=== PATIENT | male | born 1995 | race Caucasian/White ===

== ENCOUNTER 2017-07-05 04:49 | Emergency (ER) | payer OTHER ==
[~2017-07-05] VITALS: Ht 170.2 cm; Wt 75.0 kg
[2017-07-05] MEDS ORDERED: TYLE500T78 PO (04:57)
[2017-07-05] MEDS ORDERED: CYCL10TA PO (06:04)
[2017-07-05] MEDS ORDERED: NAPR500T PO (06:04)
[2017-07-05] MEDS ORDERED: TRAM50TA2 PO (06:04)
[2017-07-05] MEDS ORDERED: CYCLOBENZAPRINE 10 MG TAB PO ONE (06:15)
[2017-07-05] MEDS ORDERED: traMADol 50 MG TAB (BULK 4 TAB ED) PO ONE (06:15)
[2017-07-05] MEDS ORDERED: NAPROXEN 250 MG TAB PO ONE (06:15)
[2017-07-05 06:19] VITALS: BP 132/79
== END 2017-07-05 06:20 | disposition home or self-care (01) ==
LOC: M ED 04:49
DX: M54.5 Low back pain (principal)

== ENCOUNTER 2018-07-10 12:39 | Emergency (ER) | payer SELFPAY, OTHER, MEDICAID ==
[2018-07-10] MEDS: METHOCARBAMOL 500 MG TAB PO (14:03)
[2018-07-10] MEDS: IBUPROFEN 800 MG TAB PO (14:03)
== END 2018-07-10 14:06 | disposition home or self-care (01) ==
LOC: M ED 12:39
DX: M62.830 Muscle spasm of back (principal); S29.002A Unspecified injury of muscle and tendon of back wall of thorax, initial encounter; X58.XXXA Exposure to other specified factors, initial encounter; Y92.89 Other specified places as the place of occurrence of the external cause; Z88.5 Allergy status to narcotic agent; Z88.8 Allergy status to other drugs, medicaments and biological substances
CPT/HCPCS: 99282

== ENCOUNTER 2018-07-11 04:02 | Emergency (ER) | payer SELFPAY, OTHER ==
[2018-07-11 04:42] LABS: APPEARANCE, URINE CLEAR (CLEAR); BACTERIA, URINE AUTO NEGATIVE (NEGATIVE); BILIRUBIN, URINE AUTO NEGATIVE (NEGATIVE); BLOOD, URINE BLOOD NEGATIVE (NEGATIVE); COLOR, URINE STRAW (YELLOW); GLUCOSE, URINE (UA) AUTO NEGATIVE (NEGATIVE); KETONE, URINE AUTO NEGATIVE (NEGATIVE); LEUKOCYTE ESTERASE, URINE AUTO NEGATIVE (NEGATIVE); NITRITE, URINE AUTO NEGATIVE (NEGATIVE); PROTEIN, URINE AUTO NEGATIVE (NEGATIVE); RBC, URINE AUTO 1 /HPF (0-3); SPECIFIC GRAVITY URINE AUTO 1.014 (1.002-1.035); SQUAMOUS EPITHELIAL CELL UR AU 0 /HPF (0-6); UROBILINOGEN, URINE AUTO 0.2 mg/dL (0.0-2.0); WBC, URINE AUTO 0 /HPF (0-3)
[2018-07-11] MEDS: NORCO 5/325MG TABLET (BULK FOR ED) PO (05:18)
== END 2018-07-11 05:24 | disposition home or self-care (01) ==
LOC: M ED 04:02
DX: M54.5 Low back pain (principal); M62.830 Muscle spasm of back; Z88.5 Allergy status to narcotic agent; Z88.6 Allergy status to analgesic agent
CPT/HCPCS: 81001

== ENCOUNTER 2019-07-20 05:21 | Emergency (ER) | payer OTHER, SELFPAY ==
[~2019-07-20] VITALS: Ht 170.2 cm; Wt 75.0 kg
[2019-07-20 05:21] VITALS: BP 159/86
[~2019-07-20 05:21] MED LIST: CYCL10TA PO; HYDR-3715 PO; IBUP80TA PO; NAPR-837 PO; ROBA500T PO; TRAM50TA2 PO; TYLE500T78 PO
[2019-07-20] MEDS ORDERED: TETRACAINE 0.5% OPHTH SOLN 4ML OS ONE (05:45)
[2019-07-20] MEDS ORDERED: FLUORESCEIN OPHTH 1 MG STRIP OS ONE (05:45)
[2019-07-20] MEDS ORDERED: ERYT1OIN26 OS (06:03)
[2019-07-20] MEDS ORDERED: ERYTHROMYCIN OPHTH OINT OS ONE (06:15)
== END 2019-07-20 06:19 | disposition home or self-care (01) ==
LOC: M ED 05:21
DX: S05.02XA Injury of conjunctiva and corneal abrasion without foreign body, left eye, initial encounter (principal); W50.0XXA Accidental hit or strike by another person, initial encounter; Y92.89 Other specified places as the place of occurrence of the external cause; Y93.89 Activity, other specified; Y99.8 Other external cause status; Z88.5 Allergy status to narcotic agent; Z88.6 Allergy status to analgesic agent

== ENCOUNTER 2020-09-24 13:34 | Emergency (ER) | payer OTHER ==
[~2020-09-24] VITALS: Ht 170.2 cm; Wt 77.5 kg
[~2020-09-24 13:34] MED LIST changes: +CYCL-707 PO; -CYCL10TA PO; +ERYT5OIN25 OS
[2020-09-24] MEDS ORDERED: IBUPROFEN 800 MG TAB PO ONE (14:15)
--- NOTE | 2020-09-24 14:48 | REP ---
INDICATION: acute severe low back pain COMPARISON: 09/08/2010 TECHNIQUE: AP, lateral, bilateral oblique, and coned-down views of the lumbar spine. FINDINGS: Alignment and lordosis from T11 through L5 is maintained and normal. There is chronic L5 spondylolysis with associated grade 1 spondylolisthesis at the L5-S1 level. The disc spaces are maintained. There is no acute fracture/compression injury. IMPRESSION: Findings suggest spondylolysis and grade 1 spondylolisthesis at the L5-S1 level. <Electronically signed by Jarad Bermudez > 09/24/20 [id number]
[2020-09-24] MEDS ORDERED: CYCLOBENZAPRINE 10MG TABLET PO ONE (15:15)
[2020-09-24] MEDS ORDERED: CYCL-707 PO (15:38)
[2020-09-24 15:41] VITALS: BP 148/88
--- NOTE | 2020-09-24 16:53 | ED PDOC ---
Post-Departure Follow-Up ls spine xray faxed to sne[facility] for fu Lauren Whalen MD Sep 24, 2020 16:53
[2020-09-24] MEDS ORDERED: KETO10TAB PO (20:55)
== END 2020-09-24 15:47 | disposition home or self-care (01) ==
LOC: M ED 13:34
DX: M62.830 Muscle spasm of back (principal); M43.06 Spondylolysis, lumbar region; Z88.8 Allergy status to other drugs, medicaments and biological substances; Z88.5 Allergy status to narcotic agent

== ENCOUNTER 2020-09-24 19:57 | Emergency (ER) | payer OTHER ==
[~2020-09-24] VITALS: Ht 170.2 cm; Wt 77.6 kg
[2020-09-24 19:58] VITALS: BP 124/82
[2020-09-24] MEDS ORDERED: KETO10TAB PO (20:55)
[2020-09-24] MEDS ORDERED: diazePAM 5 MG TAB PO ONE (21:00)
[2020-09-24] MEDS ORDERED: KETOROLAC 30 MG/ML 1ML VIAL IM ONE (21:00)
== END 2020-09-24 21:27 | disposition home or self-care (01) ==
LOC: M ED 19:57
DX: M62.830 Muscle spasm of back (principal); Z79.899 Other long term (current) drug therapy; Z88.5 Allergy status to narcotic agent; Z88.8 Allergy status to other drugs, medicaments and biological substances
CPT/HCPCS: 96372; 99282; J1885

== ENCOUNTER → 2021-11-28 | Outpatient (REF) | payer OTHER ==
[~2021-11-28] MED LIST changes: +KETO10TAB PO
== END ==
LOC: EEVIPCON 11:55 → M LAB REF 11:55
PROVIDERS: ATTEND Physician Assistant Medical
DX: L02.211 Cutaneous abscess of abdominal wall (principal)